=== PATIENT | female | born 1995 | race American Indian/Alaskan Native ===

== ENCOUNTER 2019-12-14 15:34 | Emergency (ER) | payer SELFPAY ==
[2019-12-14 15:45] VITALS: BP 128/82
[2019-12-14] MEDS ORDERED: IBUPROFEN 800 MG TAB PO ONE (17:55)
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
== END 2019-12-14 20:40 | disposition home or self-care (01) ==
LOC: ED 15:34
DX: S39.012A Strain of muscle, fascia and tendon of lower back, initial encounter (principal); M79.672 Pain in left foot; V89.2XXA Person injured in unspecified motor-vehicle accident, traffic, initial encounter; Y93.89 Activity, other specified; Y92.89 Other specified places as the place of occurrence of the external cause; Y99.8 Other external cause status
CPT/HCPCS: 72100